=== PATIENT | female | born 1955 | race Two or more races ===

== ENCOUNTER 2019-03-30 13:10 | Outpatient (CLI) | payer OTHER | END 2019-03-30 13:17 | disposition home or self-care (01) | LOC: NUCLEAR 13:10 | DX: M81.0 Age-related osteoporosis without current pathological fracture (principal) ==

== ENCOUNTER → 2019-08-08 06:54 | Outpatient (CLI) | payer OTHER | END | disposition home or self-care (01) | LOC: LAB 06:54 | DX: C50.411 Malignant neoplasm of upper-outer quadrant of right female breast (principal); Z85.3 Personal history of malignant neoplasm of breast; Z79.811 Long term (current) use of aromatase inhibitors; I10 Essential (primary) hypertension; D51.3 Other dietary vitamin B12 deficiency anemia; E55.9 Vitamin D deficiency, unspecified; E04.8 Other specified nontoxic goiter; E78.00 Pure hypercholesterolemia, unspecified; E03.8 Other specified hypothyroidism; Z80.3 Family history of malignant neoplasm of breast; D50.8 Other iron deficiency anemias; D51.8 Other vitamin B12 deficiency anemias; C50.919 Malignant neoplasm of unspecified site of unspecified female breast; R97.8 Other abnormal tumor markers; R97.0 Elevated carcinoembryonic antigen [CEA]; E78.2 Mixed hyperlipidemia; E11.9 Type 2 diabetes mellitus without complications ==

== ENCOUNTER 2019-08-08 07:20 | Outpatient (CLI) | payer OTHER | END 2019-08-08 07:56 | disposition home or self-care (01) | LOC: MAMO-SONO 07:20 | DX: C50.411 Malignant neoplasm of upper-outer quadrant of right female breast (principal); Z80.3 Family history of malignant neoplasm of breast; Z85.3 Personal history of malignant neoplasm of breast; Z79.811 Long term (current) use of aromatase inhibitors; I10 Essential (primary) hypertension; D51.3 Other dietary vitamin B12 deficiency anemia; E55.9 Vitamin D deficiency, unspecified; E04.8 Other specified nontoxic goiter; E78.00 Pure hypercholesterolemia, unspecified; E03.8 Other specified hypothyroidism ==

== ENCOUNTER 2019-09-05 07:08 | Outpatient (CLI) | payer OTHER | END 2019-09-05 07:17 | disposition home or self-care (01) | LOC: LAB 07:08 | DX: E03.8 Other specified hypothyroidism (principal); I10 Essential (primary) hypertension; Z80.3 Family history of malignant neoplasm of breast; C50.411 Malignant neoplasm of upper-outer quadrant of right female breast; Z85.3 Personal history of malignant neoplasm of breast; Z79.811 Long term (current) use of aromatase inhibitors; D51.3 Other dietary vitamin B12 deficiency anemia; E55.9 Vitamin D deficiency, unspecified; E04.8 Other specified nontoxic goiter; E78.00 Pure hypercholesterolemia, unspecified ==

== ENCOUNTER 2019-09-07 07:25 | Outpatient (CLI) | payer OTHER | END 2019-09-07 07:31 | disposition home or self-care (01) | LOC: TOM 07:25 | DX: C50.411 Malignant neoplasm of upper-outer quadrant of right female breast (principal); Z85.3 Personal history of malignant neoplasm of breast; Z79.811 Long term (current) use of aromatase inhibitors; I10 Essential (primary) hypertension; D51.3 Other dietary vitamin B12 deficiency anemia; E55.9 Vitamin D deficiency, unspecified; E04.8 Other specified nontoxic goiter; E78.00 Pure hypercholesterolemia, unspecified; E03.8 Other specified hypothyroidism; Z80.3 Family history of malignant neoplasm of breast; R07.89 Other chest pain | CPT/HCPCS: 71275; 74178; Q9965 ==

== ENCOUNTER 2019-10-03 07:07 | Outpatient (CLI) | payer OTHER | END 2019-10-03 07:18 | disposition home or self-care (01) | LOC: MRI 07:07 | PROVIDERS: ATTEND Internal Medicine Hematology & Oncology | DX: C50.411 Malignant neoplasm of upper-outer quadrant of right female breast (principal); Z80.3 Family history of malignant neoplasm of breast; Z85.3 Personal history of malignant neoplasm of breast; Z79.811 Long term (current) use of aromatase inhibitors; I10 Essential (primary) hypertension; D51.3 Other dietary vitamin B12 deficiency anemia; E55.9 Vitamin D deficiency, unspecified; E04.8 Other specified nontoxic goiter; E03.8 Other specified hypothyroidism; C78.7 Secondary malignant neoplasm of liver and intrahepatic bile duct | CPT/HCPCS: 74183; A9575; 74182 ==

== ENCOUNTER 2020-08-13 07:39 | Outpatient (CLI) | payer OTHER | END 2020-08-13 07:56 | disposition home or self-care (01) | LOC: MAMO-SONO 07:39 | PROVIDERS: ATTEND Internal Medicine Hematology & Oncology | DX: C50.411 Malignant neoplasm of upper-outer quadrant of right female breast (principal) ==

== ENCOUNTER 2020-11-14 07:44 | Outpatient (CLI) | payer OTHER | END 2020-11-14 07:45 | disposition home or self-care (01) | LOC: LAB 07:44 | PROVIDERS: ATTEND Internal Medicine Hematology & Oncology | DX: D50.8 Other iron deficiency anemias (principal); I10 Essential (primary) hypertension; D51.3 Other dietary vitamin B12 deficiency anemia; C50.411 Malignant neoplasm of upper-outer quadrant of right female breast; R97.0 Elevated carcinoembryonic antigen [CEA]; E11.9 Type 2 diabetes mellitus without complications ==

== ENCOUNTER 2021-08-13 10:05 | Outpatient (CLI) | payer OTHER | END 2021-08-13 13:01 | disposition home or self-care (01) | LOC: RAD 10:05 | PROVIDERS: ATTEND Specialist | DX: Z01.811 Encounter for preprocedural respiratory examination (principal); M19.011 Primary osteoarthritis, right shoulder; M19.012 Primary osteoarthritis, left shoulder ==

== ENCOUNTER 2021-08-21 12:05 | Outpatient (CLI) | payer OTHER | END 2021-08-21 12:20 | disposition home or self-care (01) | LOC: MAMO-SONO 12:05 | PROVIDERS: ATTEND Internal Medicine Hematology & Oncology | DX: Z12.31 Encounter for screening mammogram for malignant neoplasm of breast (principal); N63.0 Unspecified lump in unspecified breast; C50.411 Malignant neoplasm of upper-outer quadrant of right female breast; M19.011 Primary osteoarthritis, right shoulder; M75.41 Impingement syndrome of right shoulder ==

== ENCOUNTER 2022-09-03 07:31 | Outpatient (CLI) | payer OTHER | END 2022-09-03 07:42 | disposition home or self-care (01) | LOC: RAD 07:31 | PROVIDERS: ATTEND Internal Medicine Hematology & Oncology | DX: Z12.31 Encounter for screening mammogram for malignant neoplasm of breast (principal); C50.411 Malignant neoplasm of upper-outer quadrant of right female breast; N63.0 Unspecified lump in unspecified breast; N64.4 Mastodynia; Z80.3 Family history of malignant neoplasm of breast; C78.7 Secondary malignant neoplasm of liver and intrahepatic bile duct; J45.20 Mild intermittent asthma, uncomplicated; I10 Essential (primary) hypertension; Z85.3 Personal history of malignant neoplasm of breast; Z79.811 Long term (current) use of aromatase inhibitors; D51.3 Other dietary vitamin B12 deficiency anemia; E55.9 Vitamin D deficiency, unspecified; E04.9 Nontoxic goiter, unspecified; E78.00 Pure hypercholesterolemia, unspecified; E03.8 Other specified hypothyroidism ==

== ENCOUNTER 2022-09-03 09:30 | Outpatient (CLI) | payer OTHER | END 2022-09-03 09:38 | disposition home or self-care (01) | LOC: NUCLEAR 09:30 | PROVIDERS: ATTEND General Practice | DX: M81.0 Age-related osteoporosis without current pathological fracture (principal) ==

== ENCOUNTER 2022-12-12 07:11 | Outpatient (CLI) | payer OTHER | END 2022-12-12 07:22 | disposition home or self-care (01) | LOC: NUCLEAR 07:11 | PROVIDERS: ATTEND Internal Medicine | DX: I25.118 Atherosclerotic heart disease of native coronary artery with other forms of angina pectoris (principal); I11.9 Hypertensive heart disease without heart failure; E78.2 Mixed hyperlipidemia; E11.10 Type 2 diabetes mellitus with ketoacidosis without coma | CPT/HCPCS: 78452; 93017; A9500 ==

== ENCOUNTER 2024-04-06 07:42 | Outpatient (CLI) | payer OTHER | END 2024-04-06 07:58 | disposition home or self-care (01) | LOC: MRI 07:42 | PROVIDERS: ATTEND Internal Medicine Hematology & Oncology | DX: C50.411 Malignant neoplasm of upper-outer quadrant of right female breast (principal); Z85.3 Personal history of malignant neoplasm of breast; Z79.811 Long term (current) use of aromatase inhibitors; I10 Essential (primary) hypertension; D51.3 Other dietary vitamin B12 deficiency anemia; E55.9 Vitamin D deficiency, unspecified; E04.9 Nontoxic goiter, unspecified; E78.00 Pure hypercholesterolemia, unspecified; E03.8 Other specified hypothyroidism; C78.7 Secondary malignant neoplasm of liver and intrahepatic bile duct; J45.20 Mild intermittent asthma, uncomplicated | CPT/HCPCS: 70553; Q9965 ==

== ENCOUNTER 2024-09-21 12:45 | Outpatient (CLI) | payer OTHER | END 2024-09-21 12:46 | disposition home or self-care (01) | LOC: NUCLEAR 12:45 | PROVIDERS: ATTEND General Practice | DX: M81.0 Age-related osteoporosis without current pathological fracture (principal) ==

== ENCOUNTER 2024-11-04 08:06 | Outpatient (CLI) | payer OTHER | END 2024-11-04 08:07 | disposition home or self-care (01) | LOC: RAD 08:06 | PROVIDERS: ATTEND Internal Medicine Hematology & Oncology | DX: R10.2 Pelvic and perineal pain (principal); Z85.3 Personal history of malignant neoplasm of breast; I10 Essential (primary) hypertension; E03.8 Other specified hypothyroidism; Z79.811 Long term (current) use of aromatase inhibitors; D51.3 Other dietary vitamin B12 deficiency anemia; E55.9 Vitamin D deficiency, unspecified; E78.00 Pure hypercholesterolemia, unspecified; J45.20 Mild intermittent asthma, uncomplicated ==

== ENCOUNTER 2024-11-09 08:36 | Outpatient (CLI) | payer OTHER | END 2024-11-09 08:43 | disposition home or self-care (01) | LOC: MAMO-SONO 08:36 | PROVIDERS: ATTEND General Practice | DX: N64.4 Mastodynia (principal); N63.11 Unspecified lump in the right breast, upper outer quadrant; N63.12 Unspecified lump in the right breast, upper inner quadrant ==

== ENCOUNTER 2024-12-07 08:08 | Outpatient (CLI) | payer OTHER | END 2024-12-07 08:09 | disposition home or self-care (01) | LOC: MAMO-SONO 08:08 | PROVIDERS: ATTEND Internal Medicine Hematology & Oncology | DX: C50.411 Malignant neoplasm of upper-outer quadrant of right female breast (principal); Z85.3 Personal history of malignant neoplasm of breast; Z79.811 Long term (current) use of aromatase inhibitors; I10 Essential (primary) hypertension; D51.3 Other dietary vitamin B12 deficiency anemia; E55.9 Vitamin D deficiency, unspecified; E04.9 Nontoxic goiter, unspecified; E78.00 Pure hypercholesterolemia, unspecified; E03.8 Other specified hypothyroidism; C78.7 Secondary malignant neoplasm of liver and intrahepatic bile duct; J45.20 Mild intermittent asthma, uncomplicated ==